=== PATIENT | female | born 1960 | race Caucasian/White ===

== ENCOUNTER → 2018-08-21 | Outpatient (CLI) | payer OTHER | END | disposition home or self-care (01) | LOC: CFH 11:00 | PROVIDERS: ATTEND Family Medicine | DX: Z13.820 Encounter for screening for osteoporosis (principal); M81.0 Age-related osteoporosis without current pathological fracture | CPT/HCPCS: 77080 ==

== ENCOUNTER 2021-01-01 11:57 | Inpatient (IN) | payer OTHER ==
[~2021-01-01] VITALS: Ht 172.7 cm; Wt 60.0 kg
[2021-01-01 12:46] LABS: BASOPHILS % (AUTO) 1 % (0-1); EOSINOPHILS % (AUTO) 3 % (1-7); LYMPHOCYTES % (AUTO) 27 % (22-44); MEAN CORPUSCULAR HEMOGLOBIN 30.4 pg (27.0-34.8); MEAN CORPUSCULAR HGB CONC 33.2 g/dL (32.4-35.8); MEAN PLATELET VOLUME 9.3 fL (7.4-10.4); MONOCYTES % (AUTO) 9 % (2-9); NEUTROPHILS % (AUTO) 61 % (42-75); PLATELET COUNT 207 x10^3/uL (130-400); RED BLOOD COUNT 4.68 x10^6/uL (3.82-5.3); RED CELL DISTRIBUTION WIDTH 12.6 % (9.6-15.2)
[2021-01-01 12:47] LABS: MD NO
[2021-01-01 12:56] LABS: ALBUMIN 3.9 g/dL (3.4-5.0); ANION GAP 6 mmol/L (5-15); CALCIUM 9.5 mg/dL (8.5-10.1); CHLORIDE 108 mmol/L (98-107); CREATININE 0.89 mg/dL (0.55-1.02)
[2021-01-01 12:59] LABS: TROPONIN I < 0.015 ng/mL (0.000-0.045)
--- NOTE | 2021-01-01 15:10 | NUR ---
TASK RN: PT AWARE OF INTENTION TO ADMIT. IV ESTABLISHED. CONTINUE TO MONITOR
--- NOTE | 2021-01-01 15:16 | NUR ---
HOSPITALIST AT BEDSIDE
--- NOTE | 2021-01-01 15:32 | NUR ---
PHONE REPORT TO ADELFO PATEL
[2021-01-01] MEDS ORDERED: SERT-331 PO (15:38)
[2021-01-01 15:50] VITALS: BP 107/71
[2021-01-01] MEDS ORDERED: ONDANSETRON ODT 4 MG PO PRN (16:00)
[2021-01-01] MEDS ORDERED: BISACODYL 10 MG SUPP PR PRN (16:00)
[2021-01-01] MEDS ORDERED: ACETAMINOPHEN 325 MG TABLET PO PRN (16:00)
[2021-01-01] MEDS ORDERED: POLYETHYLENE GLYCOL 17 GM PACKET PO PRN (16:00)
[2021-01-01] MEDS ORDERED: DOCUSATE 100 MG CAPSULE PO PRN (16:00)
[2021-01-01] MEDS ORDERED: ENALAPRILAT 1.25 MG/ML, 2ML IVPush PRN (16:00)
[2021-01-01] MEDS ORDERED: ONDANSETRON 2MG/ML, 2ML IVPush PRN (16:00)
[2021-01-01] MEDS ORDERED: MELATONIN 5 MG TABLET PO PRN (16:00)
[2021-01-01 16:55] VITALS: BP 104/68
[2021-01-01] MEDS: ENOXAPARIN 40 MG/0.4 ML SQ SCH (17:17)
[2021-01-01 18:29] LABS: TROPONIN I < 0.015 ng/mL (0.000-0.045)
[2021-01-01 21:08] VITALS: BP 104/65
[2021-01-01 21:09] VITALS: BP 102/65
[2021-01-01 21:11] VITALS: BP 95/61
[2021-01-01 21:24] VITALS: BP 105/72
[2021-01-02] VITALS (10 sets, daily range): BP systolic 85–110; BP diastolic 55–69
[2021-01-02 04:47] LABS: BASOPHILS % (AUTO) 1 % (0-1); EOSINOPHILS % (AUTO) 3 % (1-7); LYMPHOCYTES % (AUTO) 41 % (22-44); MEAN CORPUSCULAR HEMOGLOBIN 30.3 pg (27.0-34.8); MEAN CORPUSCULAR HGB CONC 33.3 g/dL (32.4-35.8); MEAN PLATELET VOLUME 9.4 fL (7.4-10.4); MONOCYTES % (AUTO) 8 % (2-9); NEUTROPHILS % (AUTO) 46 % (42-75); PLATELET COUNT 193 x10^3/uL (130-400); RED BLOOD COUNT 4.45 x10^6/uL (3.82-5.3); RED CELL DISTRIBUTION WIDTH 12.7 % (9.6-15.2)
[2021-01-02 04:49] LABS: MD NO
[2021-01-02 04:58] LABS: ANION GAP 6 mmol/L (5-15); CALCIUM 9.2 mg/dL (8.5-10.1); CHLORIDE 108 mmol/L (98-107)
[2021-01-02 05:01] LABS: CHOL/HDL RATIO 4.1; CHOLESTEROL, TOTAL 244 mg/dL (140-239); CREATININE 0.77 mg/dL (0.55-1.02); HDL CHOL % 24 % (28-40); HDL CHOLESTEROL (DIRECT) 59 mg/dL (40-60); LDL CHOLESTEROL,CALCULATED 159 mg/dL (54-169); LDL/HDL RATIO 2.7 (0.5-3.0); TRIGLYCERIDES 132 mg/dL (50-200); VLDL CHOLESTEROL 26 mg/dL (0-25)
[2021-01-02] MEDS: ASPIRIN 81 MG TABLET EC PO SCH (05:25)
[2021-01-02] MEDS: SERTRALINE 50MG TABLET PO SCH (08:05)
[2021-01-02] MEDS: ENOXAPARIN 40 MG/0.4 ML SQ SCH (16:28)
[2021-01-03] VITALS (9 sets, daily range): BP systolic 86–107; BP diastolic 57–71
[2021-01-03] MEDS: ASPIRIN 81 MG TABLET EC PO SCH (06:27)
[2021-01-03] MEDS ORDERED: REGADENOSON 0.4 MG/5 ML SYRINGE ONE (07:33)
[2021-01-03] MEDS: SERTRALINE 50MG TABLET PO SCH (08:42)
[2021-01-03] MEDS ORDERED: AMINOPHYLLINE 25 MG/ML, 10ML ONE (09:52)
== END 2021-01-03 15:50 | disposition home or self-care (01) | DRG 310 ==
LOC: ED 14:55 → EDIP 14:59 → SUATTDRO 15:23 → 5SO 15:45 → DCLOUNGE 01-03 15:45
PROVIDERS: ADMIT Family Medicine; ATTEND Family Medicine
DX: I47.2 Ventricular tachycardia (principal); I10 Essential (primary) hypertension; I34.1 Nonrheumatic mitral (valve) prolapse; F41.9 Anxiety disorder, unspecified; I48.91 Unspecified atrial fibrillation; R19.7 Diarrhea, unspecified; R55 Syncope and collapse; Z90.49 Acquired absence of other specified parts of digestive tract; Z82.49 Family history of ischemic heart disease and other diseases of the circulatory system; Z88.0 Allergy status to penicillin
CPT/HCPCS: 36415; 71045; 78452; 80048; 80061; 82040; 83735; 83880; 84100; 84443; 84484; 85025; 93005; 93017; 93306; G0378; J1650; J2785; A9502; J0280